=== PATIENT | male | born 1990 | race Caucasian/White ===

== ENCOUNTER 2020-06-26 18:41 | Emergency (ER) | payer SELFPAY ==
[2020-06-26] VITALS (8 sets, daily range): BP systolic 100–122; BP diastolic 59–72; PULSE 67–88; RESP 14–20; TEMP 35.1–36.2; O2SAT 94–100; BMI 23.6
[2020-06-26] MEDS: Haloperidol Lactate 5 MG/ML VIAL IM (19:15)
[2020-06-26] MEDS: LORazepam 2 MG/ML VIAL IM (19:15)
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
--- NOTE | 2020-06-26 19:41 | XR_ITS ---
EXAMINATION: XR CHEST CLINICAL INFORMATION: Hypothermia COMPARISON: 12/14/2014 TECHNIQUE: Frontal view of the chest was obtained. FINDINGS: Lungs are hypoinflated with a moderately distended stomach. Otherwise, no significant abnormality is noted involving the heart, lungs, mediastinum, bony thorax or soft tissues. XR/XR chest 1V IMPRESSION: Hypoinflated lungs with gaseous distention of stomach. No acute intrathoracic disease.
[2020-06-26 20:16] LABS: MANUAL DIFF FLAG NO
[2020-06-26 20:17] LABS: Basophils Absolute Auto 0.1 X10*3/uL (0.0-0.2); Basophils Percent Auto 0.6 % (0-2); Eosinophils Absolute Auto 0.2 X10*3/uL (0.0-0.4); Eosinophils Percent Auto 1.5 % (0-4); Hematocrit 44.5 % (42-52); Hemoglobin 15.1 g/dl (14.0-18.0); Imm Gran Abs Auto 0.06 X10*3/uL (0.00-0.03); Imm Gran Pct Auto 0.4 % (0.0-0.4); Lymphocytes Absolute Auto 1.8 X10*3/uL (1.2-4.9); Lymphocytes Percent Auto 11.9 % (20-40); Mean Corpuscular HGB Conc 33.9 g/dl (31.0-36.0); Mean Corpuscular Hemoglobin 30.4 pg (27.0-33.0); Mean Corpuscular Volume 89.5 fL (80-98); Monocytes Absolute Auto 0.8 X10*3/uL (0.1-1.2); Monocytes Percent Auto 5.2 % (2-11); Neutrophils Absolute Auto 11.9 X10*3/uL (2.0-8.3); Neutrophils Percent Auto 80.4 % (45-73); Platelet Count 210 X10*3/uL (160-400); Red Blood Count 4.97 X10*6/uL (4.60-5.80); Red Cell Distribution Width 12.8 % (11.0-16.0); White Blood Count 14.8 X10*3/uL (4.8-10.8)
[2020-06-26 20:40] LABS: Ethanol 194 mg/dL
[2020-06-26 20:43] LABS: Lactic Acid 4.2 mmol/L (0.5-2.0)
[2020-06-26 20:44] LABS: Alanine Aminotransferase 15 U/L (0-40); Albumin Level 4.5 g/dL (3.5-5.0); Alkaline Phosphatase 71 U/L (39-117); Anion Gap 17 (12-20); Aspartate Amino Transferase 22 U/L (5-37); Bilirubin Direct 0.5 mg/dL (0.0-0.5); Bilirubin Total 1.4 mg/dL (0.0-1.0); Blood Urea Nitrogen 7 mg/dL (9-16); Calcium 8.7 mg/dL (8.4-10.2); Carbon Dioxide 23 mmol/L (22-29); Chloride 106 mmol/L (96-108); Creatinine Clr Calc Pharmacy 122.4; Estimated Glomerular Filt Rate > 60; Glucose Random 95 mg/dL (60-115); Potassium 3.1 mmol/l (3.3-5.1); Sodium 143 mmol/L (135-145)
[2020-06-26] MEDS: 0.9 % Sodium Chloride 1,000 ML 999 ML IVCONT ×2 (20:45→21:46)
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
[2020-06-26 21:56] LABS: Glucose Urine UA NEG (NEG); Leukocyte Esterase Urine NEG (NEG); Nitrite Urine NEG (NEG); Urine Blood NEG (NEG); Urine Ketones NEG (NEG); Urine Protein NEG (NEG-TRACE)
[2020-06-26] MEDS: cefTRIAXone sodium 1 GM in 0.9 % Sodium Chloride 50 ML IV (22:03)
[2020-06-26 22:04] LABS: Appearance Urine CLEAR; Color Urine YELLOW
[2020-06-26 22:11] LABS: Reflex Lactate? Lactic Acid Added
[2020-06-26] MEDS: Potassium Chloride/H20 10 MEQ/100 ML PIGGYBACK 100 MEQ IV ×2 (22:22→23:37)
[2020-06-26 22:32] LABS: Amphetamine Screen Urine Not Detected (Not Detect); Barbiturates, Urine Not Detected (Not Detect); Benzodiazepines Screen Urine Not Detected (Not Detect); Cannabinoid Screen Urine POSITIVE (Not Detect); Cocaine Screen Urine Not Detected (Not Detect); Opiate Screen Urine Not Detected (Not Detect); Phencyclidine Screen Urine Not Detected (Not Detect)
[2020-06-26 23:15] LABS: ~Lactic Acid-LAB USE ONLY 2.2 mmol/L (0.5-2.0)
[2020-06-27] VITALS: BP 106/64; PULSE 81; RESP 14; TEMP 36.6; O2SAT 98
[2020-06-27 00:50] LABS: Reflex Lactate? 2 Y
[2020-06-27 01:47] LABS: ~Lactic Acid-LAB USE ONLY 1.6 mmol/L (0.5-2.0)
[2020-06-27 02:16] VITALS: BP 103/63; PULSE 58; RESP 16; O2SAT 97
--- NOTE | 2020-06-27 06:05 | PC.NURSE ---
ambulated to bathroom with steady gait visualized by provider. all vitals wnl. d.c home. belongings returned in
[2020-06-27 06:06] VITALS: BP 109/76; PULSE 88; RESP 18; TEMP 36.9; O2SAT 99
== END 2020-06-27 06:11 | disposition home or self-care (01) ==
PROVIDERS: Emergency Provider Emergency Medicine
DX: S00.91XA Abrasion of unspecified part of head, initial encounter (principal); F10.129 Alcohol abuse with intoxication, unspecified; Y90.6 Blood alcohol level of 120-199 mg/100 ml; X58.XXXA Exposure to other specified factors, initial encounter; Y93.9 Activity, unspecified; Y92.9 Unspecified place or not applicable; Y99.9 Unspecified external cause status; Z71.41 Alcohol abuse counseling and surveillance of alcoholic
CPT/HCPCS: 36415; 70450; 71045; 80048; 80076; 80307; 80320; 81003; 83605; 85025; 87040; 96365; 96367; 96372; 99284; J0696; J2060